=== PATIENT | male | born 1955 | race Caucasian/White ===

== ENCOUNTER → 2021-03-27 | Outpatient (CLI) | payer MEDICARE ==
[~2021-03-27] VITALS: Ht 177.8 cm; Wt 96.4 kg
[~2021-03-27] MED LIST: ASPIRIN 81M81 MG/TA2 PO; HYZAAR 50-12.1 UDTAB PO; ZOCOR5 MG PO
[2021-03-27 06:42] VITALS: BP 118/78; PULSE 85; TEMP 97.9
[2021-03-27 08:15] VITALS: BP 135/87; PULSE 77
== END ==
LOC: COL.RAD 06:15
DX: M48.02 Spinal stenosis, cervical region (principal)
CPT/HCPCS: J1100

== ENCOUNTER → 2021-08-18 | Outpatient (CLI) | payer MEDICARE ==
[~2021-08-18] VITALS: Ht 177.8 cm; Wt 98.4 kg
[~2021-08-18] MED LIST changes: +FLEXERIL 1010 MG/TAB PO; +NEURONTIN800 MG/TAB PO
[2021-08-18 13:12] VITALS: BP 116/75; PULSE 87; TEMP 98.1
[2021-08-18 14:00] VITALS: BP 135/86; PULSE 85
== END ==
LOC: COL.RAD 12:58
DX: M48.02 Spinal stenosis, cervical region (principal)
CPT/HCPCS: J1100